=== PATIENT | male | born 1990 | race Caucasian/White ===

== ENCOUNTER 2019-10-09 15:33 | Emergency (ER) | payer OTHER, SELFPAY ==
[2019-10-09] MEDS ORDERED: Lidocaine 2% w/Epinephrine 1:200K 20 ML VIAL ONE (16:32)
== END 2019-10-09 16:50 | disposition home or self-care (01) ==
LOC: BURERS 15:33
DX: L02.415 Cutaneous abscess of right lower limb (principal); L02.31 Cutaneous abscess of buttock; L03.115 Cellulitis of right lower limb; L03.317 Cellulitis of buttock; F41.9 Anxiety disorder, unspecified; F17.210 Nicotine dependence, cigarettes, uncomplicated
CPT/HCPCS: 10060

== ENCOUNTER 2020-08-03 15:46 | Emergency (ER) | payer OTHER ==
[2020-08-03] MEDS ORDERED: Lidocaine 1% PF 5 ML VIAL ONE (18:09)
== END 2020-08-03 17:35 | disposition home or self-care (01) ==
LOC: BURERS 15:46
DX: S61.231A Puncture wound without foreign body of left index finger without damage to nail, initial encounter (principal); F17.210 Nicotine dependence, cigarettes, uncomplicated; X58.XXXA Exposure to other specified factors, initial encounter